=== PATIENT | male | born 1980 | race Two or more races ===

== ENCOUNTER 2019-01-20 23:40 | Emergency (ER) | payer MEDICAID, OTHER ==
[~2019-01-20] VITALS: Ht 177.8 cm; Wt 115.7 kg
[2019-01-21 04:10] VITALS: BP 149/82
== END 2019-01-21 04:35 | disposition home or self-care (01) ==
LOC: ER 23:40
DX: S13.9XXA Sprain of joints and ligaments of unspecified parts of neck, initial encounter (principal); M62.838 Other muscle spasm; V43.62XA Car passenger injured in collision with other type car in traffic accident, initial encounter; Y93.89 Activity, other specified; Y99.8 Other external cause status; Y92.410 Unspecified street and highway as the place of occurrence of the external cause
CPT/HCPCS: 72040